=== PATIENT | male | born 1940 | race Caucasian/White ===

== ENCOUNTER 2016-09-04 05:37 | Day surgery (SDC) | payer MEDICARE ==
[~2016-09-04] VITALS: Ht 172.7 cm; Wt 84.4 kg
[2016-09-04] VITALS (9 sets, daily range): BP systolic 99–131; BP diastolic 47–63; PULSE 54–67; RESP 14–18; O2SAT 93–99
[~2016-09-04 05:37] MED LIST: ASPI-973 PO; GLIP2.5T2 PO; LIP40 PO; METO100T3 PO; MOME15CR TP; NITR0.4T6 SL
[2016-09-04] MEDS ORDERED: fentaNYL-PF 50 mCg/mL 2 mL Inj ONE (05:38)
[2016-09-04] MEDS ORDERED: Ondansetron 2 mg/mL 2 mL Inj ONE (05:38)
[2016-09-04] MEDS ORDERED: Lidocaine PF 1% 30 mL Inj ONE (05:38)
[2016-09-04] MEDS ORDERED: Propofol 10,000 mCg/mL 20 mL Inj ONE (05:38)
[2016-09-04] MEDS ORDERED: CeFAZolin Inj 2 GM in IV Premix 1 EACH IV ONE (06:00)
[2016-09-04] MEDS: Lactated Ringer's 1,000 ML IV SCH ×2 (06:12→07:22)
--- NOTE | 2016-09-04 07:18 | PCM.HPANE ---
Patient Data Surgeon Admitting Provider: Attending Provider:Juanita Mejia MD Primary Care Physician:Dimitri Field MD Other Provider:Anita Pickettingham Anesthesia Reason for Visit Bladder Tumor Ht/WT & BMI Height (Feet): 5 Height (Inches): 8 Weight (Kilograms): 84.4 Body Mass Index 28.00 Allergies Coded Allergies: bacitracin (Verified Allergy, Severe, Rash, 09/03/16) patient reports being allergic to all ointment based antibiotics anything topical petrolatum,white (Verified Allergy, Severe, Rash, swelling, 09/03/16) Beta-Blockers (Beta-Adrenergic Bloc (Unverified Allergy, Unknown, UNKNOWN , 09/03/16) lisinopril (Verified Adverse Reaction, Severe, FATIGUE, 09/03/16) Uncoded Allergies: BETA-BLOCKERS (Allergy, Unknown, FATIGUE, 10/17/15) Past Anesthesia History Anesthesia History: Denies:: Anesthesia Reactions, Malignant Hyperthermia Diabetes History Hx Diabetes?: Yes Type of Diabetes: Type II Glycemic Control: Oral Medication Current Bedside Blood Glucose: 102 MRSA MRSA: No Medications Blood Thinner: Aspirin Home Meds Incl Beta Gus: Yes Date Beta Gus Taken: Sep 04, 2016 Time Beta Gus Taken: 0500 Reported Medications Mometasone Furoate (Elocon)60 Applic/15 Gm Cream1 Applic TP DAILY 0.1% 09/03/16 Glipizide ER 2.5 Mg Tab.er.242.5 Mg PO DAILY 10/17/15 Aspirin 81 Mg Idpxsk37 Mg PO DAILY 09/21/15 Atorvastatin (Lipitor)40 Mg [id number] Mg PO HS 03/17/15 Nitroglycerin SL 0.4 Mg Tab.subl0.4 Mg SL Q5MIN PRN For Chest Pain 03/17/15 Metoprolol Tartrate 100 Mg Louwib71 Mg PO DAILY 03/17/15 History History of ENT Problems?: Yes HEENT History: Denies:: Cataracts Dysphagia Sinus Problem Denture Type: Full- Upper Full- Lower Other HEENT Pertinent History: S/P EXC PAROTID ADENOMA Hx of Heart Problems?: Yes Cardiovascular History: Positive for:: Cardiac Surgery (S/P HEART CATH/BMS 2009,HEART CATH 2014) Chest Pain (2014) Coronary Artery Disease (ISCHEMIC CARDIOMYOPATHY) Hypertension (HYPERLIPIDEMIA) Denies:: Congestive Heart Failure Edema Heart Murmur (ECHO 12/2014 EF 45-50%) Irregular Heartbeat (SINUS REA) Pacemaker Thrombophlebitis Valvular Heart Disease Hx of Respiratory Problem?: Yes Respiratory History: Positive for:: COPD Pneumonia (in the distant past) Use of C-PAP Machine (CHARO+ ??CPAP) Denies:: Asthma Chest Surgery Dyspnea Emphysema Hemoptysis Tuberculosis Hx Neurologic Problems?: No Hx of GI Problems?: No Hx of Problems?: Yes Genitourinary History: Denies:: HX of Hemodialysis (HX OF CHRONIC RENAL INSUFFICIENCY STAGE 3) Kidney Stones Urinary Tract Infection HX of Peritoneal Dialysis: No Other Pertinent History: BLADDER TUMOR=current problem HX URETERAL OBSTRUCTION 09/2015 S/P TURBT Male Hx: Denies:: Prostate Problems Scrotal Mass Testicular Surgery Skin History: Denies:: History Skin Disorders? Pressure Ulcers Hx Musculoskeletal Problems?: No Hx of Psycho/Social Problems?: Yes Psycho Social History: Positive for:: Anxiety Hx Depression Denies:: Bipolar Disorder Suicide Attempt Hx Surgeries?: Yes (HEART CATH W/ STENTS,HEART CATH,TURBT,EXC PAROTID ADENOMA) Hx Any Other Health Problems?: Yes Other History: Positive for:: Cancer (BLADDER) Hospitalization (stents, MD, Pneumonia) Denies:: Endocrine Disease Thyroid Disease History Blood Transfusions: Denies:: Blood Transfuse Reaction Blood Transfusions Hx Diabetes: YesBedside Blood Glucose: 102 Hx Alcohol Use: Yes (RARE)Hx Substance Use: No Smoking Status: Heavy Tobacco Smoker Light Tobacco Smoker Have You Smoked inLast 12 mo: YesApprox How Many Cigarettes/day: 1 PPD Stop/Bang S-Snoring: Do You Snore Loudly: No T-Tired: feel tired, fatigued: No O-Obsered: Observed not breath: No P-Blood Pressure: treated: Yes B- Body Mass Index > 35 kg/m2: No A- Age over 50: Yes N- Neck Large Circumference: No G- Gender Male: Yes CHARO Total Score: 3 Risk Assessment Category Category 1A: Patient has history of documented sleep apnea, and HAS NOT received any narcotic, sedative or anesthesia administration during this stay. Category 1B: Patient has history of documented sleep apnea, and HAS received any narcotic , sedative or anesthesia administration during this stay Category 2: Patient has SUSPECTED Obstructive Sleep Apnea, and HAS received any narcotic , sedative or anesthesia administration during this stay. Category 3: Patient has SUSPECTED Obstructive Sleep Apnea and HAS NOT received narcotic, sedative or anesthesia administration during this stay. Category 4: Outpatient in Procedural Areas with known sleep apnea or who screen positive for High Risk via the STOP/BANG questionnaire. Exam Exam Vital Signs Vital Signs Date Time Temp Pulse Resp B/P Pulse Ox O2 Delivery O2 Flow Rate FiO2 09/04/16 05:54 36.4 62 16 131/57 98 Room Air General Appearance: Alert, Oriented X3, Cooperative, No Acute Distress HEENT/AIRWAY: MP 1 Lungs: Normal Air Movement Heart: Regular Rate/Rhythm Meds/Labs/Diagnostics Admission Meds Current Medications Lactated Ringer's (Lr) 1,000 ml @ 120 mls/hr Q8H20M IV Last administered on t 06:12; Start 09/04/16 at 05:00; Stop 09/04/16 at 13:19 Bedside Blood Glucose: 102 Plan Impression Patient chart reviewed, patient interviewed and anesthestic plan with risks, benefits, and alternatives discussed, and informed consent obtained. NPO Status: 0500 WATER ASA Physical Status: ASA3 Severe Disease Anesthetic Plan: GA Bene/Risks/Altern/Consents: Yes HP Complete Prior to Induction: Yes Hilary Latham DO Sep 04, 2016 07:18
[2016-09-04] MEDS ORDERED: Belladonna Alk-Opium 60 mg Rectal Suppository RECTAL ONE ×2 (07:28→07:47)
[2016-09-04] MEDS ORDERED: Lactated Ringer's 1,000 ML IV SCH ×2 (07:41→07:58)
[2016-09-04] MEDS ORDERED: Lactated Ringer's 500 ML IV PRN (07:41)
[2016-09-04] MEDS ORDERED: EPHEDrine Sulfate 50 mg/mL Inj IVPUSH PRN (07:45)
[2016-09-04] MEDS ORDERED: HYDROmorphone 1 mg/mL Inj IVPUSH PRN (07:45)
[2016-09-04] MEDS ORDERED: fentaNYL-PF 50 mCg/mL 2 mL Inj IVPUSH PRN (07:45)
[2016-09-04] MEDS ORDERED: MetoCLOpramide 5 mg/mL 2 mL Inj IVPUSH PRN (07:45)
[2016-09-04] MEDS ORDERED: Ondansetron 2 mg/mL 2 mL Inj IVPUSH PRN (07:45)
[2016-09-04] MEDS ORDERED: Phenylephrine 10,000 mCg/mL Inj IVPUSH PRN (07:45)
[2016-09-04] MEDS ORDERED: Belladonna Alk-Opium 60 mg Rectal Suppository RECTAL PRN (08:00)
[2016-09-04] MEDS ORDERED: HYDROcodone-APAP 5-325 mg Tablet PO PRN ×2 (08:00)
[2016-09-04] MEDS ORDERED: Polyethylene Glycol (PEG) 17 Gm Powder PO PRN (08:00)
--- NOTE | 2016-09-04 08:06 | PCM.ANEP2 ---
Post Anesthesia Evaluation ASA/CMS Post Anesthesia VS in Patient's Normal Range?: Yes Resp Stable; Airway Patent?: Yes CV Function & Hydration Stable: Yes Mental Status Recovered?: Yes Pain control Satisfactory?: Yes N/V Control Satisfactory?: Yes Hilary Latham DO Sep 04, 2016 08:06
--- NOTE | 2016-09-04 08:06 | PCM.ANEP1 ---
Post Anesthesia Phase 1 PACU Phase 1 Assessment Vital Signs Vital Signs Date Time Temp Pulse Resp B/P Pulse Ox O2 Delivery O2 Flow Rate FiO2 09/04/16 08:05 67 18 119/62 95 Room Air 09/04/16 08:00 54 15 103/47 99 Simple Mask 8 09/04/16 07:55 54 14 99/49 99 Simple Mask 8 09/04/16 07:53 36.4 57 14 100/48 99 Simple Mask 8 09/04/16 05:54 36.4 62 16 131/57 98 Room Air Anesthetic Administered: GA Level of Alertness: Sleeping, hard to arouse HARLEY's with Equal Strength: Yes Pain: No Nausea or Vomiting: No Airway Device: Oralpharangeal Airway Oxygen Delivery: Simple Mask Lungs: Normal Air Movement Hilary Latham DO Sep 04, 2016 08:06
[2016-09-04] MEDS ORDERED: Belladonna Alk-Opium 60 mg Rectal Suppository RECTAL SCH (08:30)
--- NOTE | 2016-09-04 08:41 | OP ---
[address] [address] OPERATIVE REPORT PATIENT: DEE CONTRERAS : 1940 MR#: [id number] ADMIT: 09/04/2016 JOB ID: [id number] DATE OF SURGERY: 09/04/2016 PREOPERATIVE DIAGNOSIS(ES): Bladder cancer. POSTOPERATIVE DIAGNOSIS(ES): Bladder cancer. PROCEDURES: Cystoscopy and bladder biopsy. DATE OF SURGERY: SURGEON: PREOPERATIVE DIAGNOSIS(ES): POSTOPERATIVE DIAGNOSIS(ES): ANESTHESIA: General anesthetic, Dr. . DESCRIPTION OF PROCEDURE: Under general anesthetic, the patient was placed in the lithotomy position. Genitalia prepped and draped in a sterile manner. A 22-Yi cystoscope was introduced through a normal anterior urethra. Just inside the bladder neck behind the interureteric ridge was an area of necrotic tissue. There were scattered areas of inflammation throughout the bladder, but nothing suspicious enough to biopsy. Bladder neck lesion was then biopsied several times and the base cauterized with a Bugbee electrode. The patient tolerated the procedure well. A B and O suppository was given for postoperative analgesia. The patient left the operating room in good condition under light anesthesia.
--- NOTE | 2016-09-10 16:19 | PATH ---
SURGICAL PATHOLOGY Attending Physician:Juanita Mejia MD () CASE STATUS: Signed Out * Amended * PATIENT NAME: DEE CONTRERAS PID: [id number] : 1940 DATE COLLECTED:09/04/2016 17:23 SPECIMEN: Bladder Neck CLINICAL HISTORY: BLADDER NECK 1). BLADDER NECK FINAL DIAGNOSIS: Bladder Neck, presumed Transurethral Resection of Bladder Tumor: Malignant neoplasm with the following characteristics: Tumor type: Carcinoma. Tumor size: Present as two small foci (1 mm and 3 mm in greatest dimension, less than 5% of submitted tissue). Histologic type: Urothelial. Histologic grade: High grade. Muscularis propria (detrusor muscle): Abundant necrotic and calcified tissue; no viable, well-preserved muscularis propria identified. Microscopic tumor extension: Tumor invades into lamina propria. Lymphovascular invasion: Not identified. Associated epithelial lesion: Reactive urothelial changes present. Procedure: Presumed transurethral resection. ICD10 Z85.51 This case was reviewed and interpreted by Dr. Jhoana Moses. The final diagnosis is unchanged. This amendment is issued in order for the report to cross the interface and be available in the hospital electronic medical record. GROSS DESCRIPTION: The specimen is received in one formalin filled container labeled with the patient's name, sublabeled "bladder neck" and consists of multiple portions of finch-brown tissue which aggregate to 1.0 x 0.7 x 0.4 CM. The specimen is entirely submitted in one cassette. 09/04/2016 [facility] ICD-9 CODES: CPT CODES: 61403 AMENDMENT(S): Amended: 09/10/2016 by Natali Damon Reason:Miscellaneous The final diagnosis is unchanged. This amendment is issued in order for the report to cross the interface and be available in the hospital electronic medical record. Previous Signout Date: 09/06/2016 Electronically Signed Out Bettie Stephenson MD [facility] Pathology [facility], [place] [address] Technical component performed at [facility], [facility] [address], [address]
== END 2016-09-04 23:59 | disposition home or self-care (01) ==
LOC: SAS 05:37
PROVIDERS: ATTEND Urology
PROC: 0TBC8ZX Excision of Bladder Neck, Via Natural or Artificial Opening Endoscopic, Diagnostic (ICD-10-PCS; principal; 2016-09-04 07:30)
DX: C67.5 Malignant neoplasm of bladder neck (principal); F17.219 Nicotine dependence, cigarettes, with unspecified nicotine-induced disorders; I13.10 Hypertensive heart and chronic kidney disease without heart failure, with stage 1 through stage 4 chronic kidney disease, or unspecified chronic kidney disease; E11.22 Type 2 diabetes mellitus with diabetic chronic kidney disease; N18.3 Chronic kidney disease, stage 3 (moderate); G47.30 Sleep apnea, unspecified; J44.9 Chronic obstructive pulmonary disease, unspecified; I25.5 Ischemic cardiomyopathy; I25.10 Atherosclerotic heart disease of native coronary artery without angina pectoris; Z95.5 Presence of coronary angioplasty implant and graft; Z79.84 Long term (current) use of oral hypoglycemic drugs; Z79.82 Long term (current) use of aspirin